=== PATIENT | female | born 1985 | race Caucasian/White ===

== ENCOUNTER 2017-01-25 02:22 | Emergency (ER) | payer BC, OTHER ==
[~2017-01-25] VITALS: Ht 172.7 cm; Wt 59.0 kg
[2017-01-25 07:04] LABS: CLARITY URINE CLOUDY (CLEAR); COLOR URINE YELLOW (YELLOW); GLUCOSE URINE NEGATIVE (NEGATIVE); KETONES URINE TRACE (NEGATIVE); LEUKOCYTE ESTERASE URINE 2+ (NEGATIVE); NITRITE URINE NEGATIVE (NEGATIVE); OCCULT BLOOD URINE 2+ (NEGATIVE); PH URINE 5.5 (4.5-8.0); PROTEIN URINE NEGATIVE (NEGATIVE); SPECIFIC GRAVITY URINE 1.031 (1.005-1.030); UROBILINOGEN URINE 0.2 E.U./dL (0.2-1.0)
[2017-01-25] MEDS ORDERED: METOCLOPRAMIDE HCL 10MG TABLET PO ONE (07:45)
[2017-01-25] MEDS ORDERED: SUMATRIPTAN SUCCINATE 6MG/0.5ML VIAL SUBCUT ONE (07:45)
[2017-01-25] MEDS ORDERED: KETOROLAC 60MG/2ML VIAL IM ONE (09:00)
[2017-01-25 09:50] VITALS: BP 119/87
== END 2017-01-25 10:30 | disposition home or self-care (01) ==
LOC: ER 08:20
DX: G43.909 Migraine, unspecified, not intractable, without status migrainosus (principal); R03.0 Elevated blood-pressure reading, without diagnosis of hypertension; N39.0 Urinary tract infection, site not specified
CPT/HCPCS: 81001; 81025; 96372; 99284; J1885; J3030; Z7610; J8597